=== PATIENT | male | born 1975 | race Caucasian/White ===

== ENCOUNTER 2017-02-08 01:49 | Emergency (ER) | payer BC ==
[~2017-02-08] VITALS: Ht 182.9 cm; Wt 127.0 kg
[2017-02-08] MEDS ORDERED: PHENERGAN 25 MG25 M1 PO (02:03)
[2017-02-08 03:34] VITALS: BP 130/90
== END 2017-02-08 03:35 | disposition home or self-care (01) ==
LOC: ER 01:49
DX: G43.909 Migraine, unspecified, not intractable, without status migrainosus (principal); F17.210 Nicotine dependence, cigarettes, uncomplicated; F10.99 Alcohol use, unspecified with unspecified alcohol-induced disorder

== ENCOUNTER 2017-02-23 02:05 | Emergency (ER) | payer BC ==
[~2017-02-23] VITALS: Ht 182.9 cm; Wt 127.0 kg
[~2017-02-23 02:05] MED LIST: PHENERGAN 25 MG25 M1 PO
[2017-02-23] MEDS ORDERED: COMPAZINE10 MG PO (04:17)
[2017-02-23 04:43] VITALS: BP 141/85
== END 2017-02-23 04:44 | disposition home or self-care (01) ==
LOC: ER 02:05
DX: G43.909 Migraine, unspecified, not intractable, without status migrainosus (principal); F17.210 Nicotine dependence, cigarettes, uncomplicated

== ENCOUNTER 2017-03-01 20:13 | Inpatient (IN) | payer BC ==
[~2017-03-01] VITALS: Ht 190.5 cm; Wt 134.7 kg
--- NOTE | ~2017-03-01 | EKG ---
[address] [address] ELECTROCARDIOGRAM REPORT Name: COCO RODRIGUEZ Room #: 437-P ADM IN M.R.#: [id number] Admission: 03/01/17 Attend Phys: Morro Mariscal MD Discharge: Date of : 71 Report #: [id number] THIS REPORT FOR: //name// [facility] ED Test Date: 2017-03-01 Test Time: 20:26:15 Pat Name: COCO RODRIGUEZ Department: Room: [facility] Gender: M Rehabilitation Team Lead: MZOOK : 1975 Requested By: Arian Castellon Order Number: [id number] MD: Manuel Singh Measurements Intervals [place] Rate: 100 P: 37 LA: 138 QRS: 23 QRSD: 94 T: 25 QT: 350 QTc: 452 Interpretive Statements Sinus tachycardia Baseline wander in lead(s) V2 No previous ECG available for comparison Electronically Signed On 03-02-2017 8:09:34 CDT by Manuel Singh [email or web address] <ELECTRONICALLY SIGNED> By: Manuel Singh MD, [facility] 03/02/17 0809 25 25 Manuel Singh MD, [facility] /EPI
--- NOTE | ~2017-03-01 | HC ---
[facility] [place] [address] CONSULTATION Name: COCO RODRIGUEZ Room #: 437-P ADM IN M.R.#: [id number] Admission: 03/01/17 Attend Phys: Morro Mariscal MD Discharge: Date of : 71 Report #: [id number] THIS REPORT FOR: //name// CC: Morro Steven REASON FOR CONSULTATION: Chest pain. HISTORY OF PRESENT ILLNESS: The patient is a 42-year-old male with history of tobacco abuse; prior bilateral DVTs, status post IVC filter, who presented with complaints of chest pain. He reports that the chest pain can come and go and typically occurs at rest, feels like he reports that the chest pain occurs between the ribs on the right side of his chest and then shoot to his left shoulder. This will last for several hours. It sometimes is associated with acceleration of his heart rate. He denies any PND or orthopnea. He denies any presyncope or syncope. REVIEW OF SYSTEMS: GENERAL: No fevers, chills. HEENT: No blurred vision. CARDIOVASCULAR: As above. PULMONARY: No productive cough. GASTROINTESTINAL: No nausea or vomiting. GENITOURINARY: He says he does have some problems with nausea and some diarrhea, but no vomiting. GENITOURINARY: No dysuria. MUSCULOSKELETAL: No myalgias or arthralgias. ENDOCRINE: No heat or cold intolerance. NEUROLOGIC: No focal weakness. PAST MEDICAL HISTORY: 1. 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 2. Migraines. 3. Continued tobacco abuse. SOCIAL HISTORY: Continues to smoke. 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 FAMILY HISTORY: Father of an SD in his 70s. ALLERGIES: None. MEDICATIONS: Coumadin, Remeron, loperamide, calcium, diphenhydramine. PHYSICAL EXAMINATION: VITAL SIGNS: Temperature is 36.8, pulse 86, respiration 20, blood pressure 125/89, sats 96%. [facility] [address] [place] [address] CONSULTATION Name: COCO RODRIGUEZ Room #: [address] [place] [address] IN M.R.#: [id number] Admission: 03/01/17 Attend Phys: Morro Mariscal MD Discharge: Date of : 71 Report #: [id number] GENERAL: He is in no acute distress. Alert and oriented x 3, sitting up at the bedside. HEENT: His oropharynx is clear. NECK: There are no carotid bruits and there is no lymphadenopathy. HEART: Regular rate and rhythm with normal S1 and S2. No S3, S4. LUNGS: Clear to auscultation bilaterally. ABDOMEN: Obese but nontender, nondistended with no hepatosplenomegaly. EXTREMITIES: There is no clubbing or cyanosis. There is 1+ edema bilaterally. His pulses are 2+ throughout. His cranial nerves 2-12 are intact. LABORATORY DATA: His EKG shows normal sinus rhythm with no ischemic changes. His chest x-ray showed no acute process. The patient underwent a nuclear stress test yesterday that showed no ischemia and normal ejection fraction. His white count is 9.6. His hemoglobin is 17, his platelets are 204. His coags demonstrate that his INR has been therapeutic at 3.3 and 3.5. His chemistries have been normal with the sodium 140, potassium 4.5, BUN 16, creatinine 1.1, magnesium 1.7, AST 37, ALT 67. Troponin is negative. IMPRESSION: In summary, the patient is a 42-year-old male with history of tobacco abuse, presenting with chest pain. His chest pain sounds to be atypical in nature. His EKG is negative. His troponin was negative and his nuclear stress test showed no evidence of ischemia. As such, I think that his chest pain is noncardiac in nature. I recommend that he optimize his risk factors including cessation of tobacco abuse. I recommend that he follow up with his primary care physician for management of his other medical issues and to follow up for routine preventative care measures. I thank you for allowing me to participate in his care. We will sign off. By: [id number] [id number] Vivek Otto MD /nt
--- NOTE | ~2017-03-01 | H ---
[facility] [place] [address] HISTORY AND PHYSICAL Name: COCO RODRIGUEZ Room #: 437-P [facility] IN M.R.#: [id number] Admission: 03/01/17 Attend Phys: Morro Mariscal MD Discharge: 03/04/17 Date of : 71 Report #: [id number] THIS REPORT FOR: //name// CC: Morro Steven DATE OF ADMISSION: 03/02/2017. ATTENDING PHYSICIAN: Dr. Morro Mariscal. PRIMARY CARE PHYSICIAN: TROY Dozier CHIEF COMPLAINT: Chest pain. HISTORY OF PRESENT ILLNESS: The patient is a 42-year-old male who came into the ER complaining of midsternal chest pain. This has been associated with fatigue, palpitations, cough and some left shoulder pain with indigestion. It has been occuring intermittently over the course of the last few days. All his symptoms usually occur around the same time. He became more concerned today because he checked his heart rate during one of these episodes and says that was around 150. He does feel like his heart raises and pounds in his chest very hard. He has not taken any medications for his pain at home. He does have a history of bilateral DVTs and is on Coumadin. He had an IVC filter in place as well because at the time of his diagnoses of the DVTs in August of 2016. They also found a kidney hematoma and eventually he was started on Coumadin. He denies any history of hypertension or coronary artery disease. He denies any recent exertional chest pain. He has been in the ER in the last few months for migraines and he has never had this type of pain before. He denies any prior cardiac testing. He denies any injury to his chest or shoulder. He has tried multiple Tums at home, which has not seemed to help. PAST MEDICAL HISTORY: Bilateral DVTs, kidney hematoma, migraines. PAST SURGICAL HISTORY: IVC filter placement and an arm and face surgery. ALLERGIES: No known drug allergies. HOME MEDICATIONS: Diphenhydramine 25 mg at bedtime p.r.n., Coumadin 7.5 mg alternating with 5 mg daily, Remeron 45 mg p.o. at bedtime, loperamide p.r.n. and calcium carbonate up to 10 tabs per day p.r.n. for digestion. SOCIAL HISTORY: The patient currently lives with his girlfriend/fiance. 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 Denies any alcohol or drug use. He is a smoker, smoking up to a pack of cigarettes per day, has been smoking for at least 32 years. [facility] [address] [place] [address] HISTORY AND PHYSICAL Name: COCO RODRIGUEZ Room #: 437-P [facility] IN M.R.#: [id number] Admission: 03/01/17 Attend Phys: Morro Mariscal MD Discharge: 03/04/17 Date of : 71 Report #: [id number] FAMILY HISTORY: His father from a heart attack in his 70s, his mother from some sort of cancer in her 50s. REVIEW OF SYSTEMS: A 12-point review of systems was reviewed with the patient, otherwise negative unless stated in the HPI. PHYSICAL EXAMINATION: GENERAL: The patient is an alert male in no acute distress. VITAL SIGNS: Temperature is 36.8, heart rate 109, respirations 17, blood pressure is 130/93, oxygen 97% on room air. HEENT: PERRLA. Sclerae is nonicteric. Oral mucosa is pink and moist. NECK: Supple, no JVD noted. CARDIOVASCULAR: Normal S1, S2. No murmurs, rubs or gallops. RESPIRATORY: Breath sounds are clear bilaterally. No wheezing or rhonchi. Breathing is nonlabored. ABDOMEN: Obese, soft, nontender, nondistended with positive bowel sounds. VASCULAR: 1+ bilateral lower extremity edema. Pedal pulses are 2+. NEUROLOGIC: The patient is alert and oriented x 3. Speech is clear. He is moving all extremities equally. No focal neuro deficits noted. LABORATORY DATA AND DIAGNOSTICS: WBC is 9.6, hemoglobin is 17.0, platelets 204. Sodium is 140, potassium 4.5, BUN 16, creatinine 1.1, glucose 108, magnesium 1.7. LFTs have been within normal limits. Troponins x 2 are negative and BNP 22, TSH is 1.8. EKG showing sinus tachycardia, rate of 100 and chest x-ray showed no acute process. Lungs are clear. ASSESSMENT AND PLAN: 1. Chest pain. His initial cardiac workup in the ER was negative. So far two sets of troponins are negative. He does have some cardiac risk factors. We will go ahead and check a stress test in the morning if his symptoms persist he may need to have further GI evaluation. This may be due to gastritis. Continue. We will add Pepcid b.i.d. 2. History of DVTs. The patient is on Coumadin. INR level is mildly supratherapeutic. We will check INRs daily and continue with Coumadin. He is supposed to be following up at [facility] to have his IVC filter removed soon. 3. Tobacco abuse. The patient has been advised to quit. 4. Hypomagnesium. This has been replaced. Repeat labs. 5. Deep venous thrombosis prophylaxis, place sequential compression devices. We will continue to follow the patient closely throughout the hospitalization and make changes based on clinical status. <ELECTRONICALLY SIGNED> By: TROY Leroy 03/05/17 0604 [id number] [id number] TROY Leroy /nt
[~2017-03-01 20:13] MED LIST changes: +COMPAZINE10 MG PO
[2017-03-01 20:32] VITALS: BP 131/93
[2017-03-01] MEDS ORDERED: COUMADIN7.5 MG PO (20:34)
[2017-03-01] MEDS ORDERED: BENADRYL25 MG PO (20:35)
[2017-03-01 21:34] LABS: ABSOLUTE NEUTROPHILS 4.9 thou/uL (1.4-8.2); BASOPHILS 0.8 % (0.0-2.0); EOSINOPHILS 2.2 % (0.0-3.0); HEMATOCRIT 49.8 % (42.0-52.0); MANUAL DIFF NO; MCH 29.1 pg (26.0-34.0); MCHC 34.1 g/dL (28.0-37.0); MCV 85.4 fL (80.0-100.0); MONOCYTES 9.9 % (1.0-8.0); PLATELET COUNT 204 thou/uL (150-400); POLYS 51.1 % (36.0-66.0); RBC 5.83 mil/uL (4.50-6.00); RDW 18.4 % (10.5-14.5); WBC 9.6 thou/uL (4.0-11.0)
[2017-03-01 21:45] LABS: ANION GAP 11 mmol/L (7-16); BUN 16 mg/dL (7-18); CHLORIDE 108 mmol/L (98-107); CO2 21 mmol/L (21-32); CREATININE 1.1 mg/dL (0.7-1.3); GLUCOSE 108 mg/dL (74-106); POTASSIUM 4.5 mmol/L (3.5-5.1); SODIUM 140 mmol/L (136-145)
[2017-03-01 21:47] LABS: INR 3.3; PROTIME 34.2 Seconds (9.3-11.4)
[2017-03-01 21:51] LABS: ALBUMIN 3.6 g/dL (3.4-5.0); ALKALINE PHOSPHATASE 72 U/L (46-116); MAGNESIUM 1.7 mg/dL (1.8-2.4); SGPT 67 U/L (30-65); TOTAL BILIRUBIN 0.5 mg/dL (<0.1-1.0); TOTAL PROTEIN 7.1 g/dL (6.4-8.2); TROPONIN-I < 0.04 ng/mL (<0.04-0.07)
[2017-03-01 22:03] LABS: SGOT 37 U/L (15-37)
[2017-03-01 22:30] VITALS: BP 123/85
[2017-03-02] MEDS ORDERED: REMERON15 MG PO (00:04)
[2017-03-02] MEDS ORDERED: COUMADIN 5 MG TA5 M1 PO (00:10)
[2017-03-02 00:45] VITALS: BP 124/82
[2017-03-02] MEDS ORDERED: TUMS PO (01:21)
[2017-03-02] MEDS ORDERED: LOPERAMIDE 2 MG2 M1 PO (01:24)
[2017-03-02 04:30] VITALS: BP 162/74
[2017-03-02 07:11] LABS: TC:HDL 8.3 Ratio (Not establshd)
[2017-03-02 08:00] VITALS: BP 149/85
[2017-03-02 16:00] VITALS: BP 150/103
[2017-03-02 18:12] VITALS: BP 136/75
[2017-03-02 19:40] VITALS: BP 130/91
[2017-03-03 03:40] VITALS: BP 148/73
[2017-03-03 05:58] LABS: INR 3.5; PROTIME 36.8 Seconds (9.3-11.4)
[2017-03-03 08:00] VITALS: BP 125/89
[2017-03-03 16:00] VITALS: BP 158/99
[2017-03-03 21:00] VITALS: BP 139/90
[2017-03-04 05:56] LABS: BASOPHILS 1.2 % (0.0-2.0); EOSINOPHILS 3.1 % (0.0-3.0); HEMATOCRIT 47.8 % (42.0-52.0); HEMOGLOBIN 16.2 gm/dL (14.0-18.0); LYMPHOCYTES 38.7 % (24.0-44.0); MCH 28.6 pg (26.0-34.0); MCHC 33.9 g/dL (28.0-37.0); MCV 84.2 fL (80.0-100.0); MONOCYTES 11.4 % (1.0-8.0); PLATELET COUNT 140 thou/uL (150-400); POLYS 45.6 % (36.0-66.0); RBC 5.67 mil/uL (4.50-6.00); RDW 17.9 % (10.5-14.5); WBC 6.5 thou/uL (4.0-11.0)
[2017-03-04 06:06] LABS: MANUAL DIFF NO
[2017-03-04 06:07] LABS: CALCIUM 7.8 mg/dL (8.5-10.1); INR 3.4; POTASSIUM 4.4 mmol/L (3.5-5.1); PROTIME 34.8 Seconds (9.3-11.4)
[2017-03-04 06:34] VITALS: BP 129/90
[2017-03-04 07:59] VITALS: BP 129/90
[2017-03-04 09:01] VITALS: BP 135/99
== END 2017-03-04 09:44 | disposition home or self-care (01) | DRG 313 ==
LOC: ER 20:13 → EROBS 23:07 → 4S 23:07
PROVIDERS: Emergency Medicine; Internal Medicine Geriatric Medicine; Nurse Practitioner Acute Care
DX: R07.89 Other chest pain (principal); F17.210 Nicotine dependence, cigarettes, uncomplicated; E83.42 Hypomagnesemia; G43.909 Migraine, unspecified, not intractable, without status migrainosus; Z86.718 Personal history of other venous thrombosis and embolism; Z79.01 Long term (current) use of anticoagulants; Z79.899 Other long term (current) drug therapy; Z86.711 Personal history of pulmonary embolism; Z82.49 Family history of ischemic heart disease and other diseases of the circulatory system; Z80.9 Family history of malignant neoplasm, unspecified; Z71.6 Tobacco abuse counseling
CPT/HCPCS: 10100

== ENCOUNTER 2017-11-17 15:51 | Emergency (ER) | payer OTHER ==
[~2017-11-17] VITALS: Ht 193 cm; Wt 117.9 kg
[~2017-11-17 15:51] MED LIST changes: +AUGMENTIN 500-1 EACH PO; +BENADRYL25 MG PO; +COUMADIN 5 MG TA5 M1 PO; +COUMADIN7.5 MG PO; +ELIQUIS5 MG PO; +FLOMAX0.4 MG PO; +HYDROCORTISONE30 G9 TOP; +KEFLEX500 M1 PO; +LOPERAMIDE 2 MG2 M1 PO; +OXYCODONE HCL 55 MG PO; +OXYCODONE-APAP1 EAC6 PO; +REMERON15 MG PO; +TUMS PO
[2017-11-17] MEDS ORDERED: REMERON15 MG PO (16:58)
[2017-11-17] MEDS ORDERED: ONDANSETRON HCL4 M2 PO (16:59)
[2017-11-17] MEDS ORDERED: COMPAZINE10 M2 PO (18:11)
[2017-11-17 18:42] VITALS: BP 131/94
== END 2017-11-17 18:46 | disposition home or self-care (01) ==
LOC: ER 15:51
DX: R51 Headache (principal); F17.210 Nicotine dependence, cigarettes, uncomplicated; Z90.89 Acquired absence of other organs; Z86.718 Personal history of other venous thrombosis and embolism

== ENCOUNTER 2018-01-07 11:27 | Emergency (ER) | payer OTHER ==
[~2018-01-07] VITALS: Ht 190.5 cm; Wt 123.8 kg
[~2018-01-07 11:27] MED LIST changes: +COMPAZINE10 M2 PO; +ONDANSETRON HCL4 M2 PO
[2018-01-07] MEDS ORDERED: NORCO 5-325 TA1 EACH PO (12:00)
[2018-01-07] MEDS ORDERED: PREDNISONE 20 M20 MG PO (12:00)
[2018-01-07 13:24] VITALS: BP 123/94
== END 2018-01-07 13:25 | disposition home or self-care (01) ==
LOC: ER 11:27
DX: M10.9 Gout, unspecified (principal); M79.672 Pain in left foot; F17.210 Nicotine dependence, cigarettes, uncomplicated

== ENCOUNTER 2018-08-31 14:42 | Emergency (ER) | payer OTHER ==
[~2018-08-31] VITALS: Ht 193 cm; Wt 117.9 kg
[~2018-08-31 14:42] MED LIST changes: +NORCO 5-325 TA1 EACH PO; +PREDNISONE 20 M20 MG PO
[2018-08-31] MEDS ORDERED: NOHOMEMEDICATIONS (15:06)
[2018-08-31 15:31] LABS: ABSOLUTE NEUTROPHILS 4.4 thou/uL (1.4-8.2); BASOPHILS 1.4 % (0.0-2.0); EOSINOPHILS 2.1 % (0.0-3.0); HEMATOCRIT 50.8 % (42.0-52.0); HEMOGLOBIN 17.4 gm/dL (14.0-18.0); LYMPHOCYTES 27.9 % (24.0-44.0); MCH 30.5 pg (26.0-34.0); MCHC 34.2 g/dL (28.0-37.0); MCV 89.1 fL (80.0-100.0); MONOCYTES 10.8 % (1.0-8.0); PLATELET COUNT 186 thou/uL (150-400); POLYS 57.8 % (36.0-66.0); RDW 13.5 % (10.5-14.5); WBC 7.6 thou/uL (4.0-11.0)
[2018-08-31 15:47] LABS: CALCIUM 8.6 mg/dL (8.5-10.1); CREATININE 1.2 mg/dL (0.7-1.3); POTASSIUM 4.1 mmol/L (3.5-5.1)
[2018-08-31 15:50] LABS: URIC ACID* 5.4 mg/dL (2.6-7.2)
[2018-08-31] MEDS ORDERED: ELIQUIS5 MG PO (16:52)
[2018-08-31] MEDS ORDERED: CLONAZEPAM 0.50.5 M1 PO (16:52)
[2018-08-31 17:04] VITALS: BP 138/88
[2018-08-31] MEDS ORDERED: TRAMADOL 50 MG50 MG PO (17:04)
[2018-08-31] MEDS ORDERED: KEFLEX500 M1 PO (17:21)
== END 2018-08-31 17:31 | disposition home or self-care (01) ==
LOC: ER 14:42
PROVIDERS: Nurse Practitioner Family
DX: I82.492 Acute embolism and thrombosis of other specified deep vein of left lower extremity (principal); F41.9 Anxiety disorder, unspecified; M10.9 Gout, unspecified; F17.210 Nicotine dependence, cigarettes, uncomplicated

== ENCOUNTER 2018-09-06 16:20 | Emergency (ER) | payer OTHER ==
[~2018-09-06] VITALS: Ht 193 cm; Wt 117.9 kg
[~2018-09-06 16:20] MED LIST changes: +CLONAZEPAM 0.50.5 M1 PO; +NOHOMEMEDICATIONS; +TRAMADOL 50 MG50 MG PO
[2018-09-06] MEDS ORDERED: CLONAZEPAM 0.50.5 M1 PO (18:08)
[2018-09-06] MEDS ORDERED: ULTRAM50 MG PO (18:08)
[2018-09-06 18:16] VITALS: BP 133/88
== END 2018-09-06 18:17 | disposition home or self-care (01) ==
LOC: ER 16:20
DX: L89.899 Pressure ulcer of other site, unspecified stage (principal); F17.210 Nicotine dependence, cigarettes, uncomplicated

== ENCOUNTER 2020-05-18 20:34 | Emergency (ER) | payer OTHER ==
[~2020-05-18] VITALS: Ht 193 cm; Wt 127.0 kg
[~2020-05-18 20:34] MED LIST changes: +ULTRAM50 MG PO
[2020-05-18 21:09] LABS: URINE BILIRUBIN NEGATIVE (Negative); URINE BLOOD NEGATIVE (Negative); URINE CLARITY CLEAR; URINE COLOR YELLOW; URINE GLUCOSE-RANDOM* NEGATIVE (Negative); URINE KETONES NEGATIVE (Negative); URINE LEUKOCYTES-REFLEX NEGATIVE (Negative); URINE NITRITE-REFLEX NEGATIVE (Negative); URINE PROTEIN (DIPSTICK) NEGATIVE (Negative); URINE SPECIFIC GRAVITY <= 1.005 (1.005-1.035); URINE UROBILINOGEN 0.2 E.U./dl (0.2-1.0)
[2020-05-18 21:10] LABS: ABSOLUTE NEUTROPHILS 3.6 thou/uL (1.4-8.2); BASOPHILS 0.3 % (0.0-2.0); EOSINOPHILS 1.5 % (0.0-3.0); HEMOGLOBIN 17.6 gm/dL (14.0-18.0); LYMPHOCYTES 36.2 % (24.0-44.0); MCH 30.4 pg (26.0-34.0); MCHC 33.9 g/dL (28.0-37.0); MCV 89.9 fL (80.0-100.0); MONOCYTES 8.1 % (1.0-8.0); PLATELET COUNT 175 thou/uL (150-400); POLYS 53.9 % (36.0-66.0); RBC 5.79 mil/uL (4.50-6.00); WBC 6.6 thou/uL (4.0-11.0)
[2020-05-18 21:20] LABS: CALCIUM 8.5 mg/dL (8.5-10.1); CREATININE 1.3 mg/dL (0.7-1.3); POTASSIUM 3.9 mmol/L (3.5-5.1)
[2020-05-18 21:26] LABS: ALBUMIN 3.7 g/dL (3.4-5.0); TOTAL BILIRUBIN 0.3 mg/dL (0.2-1.0); TOTAL PROTEIN 7.4 g/dL (6.4-8.2)
[2020-05-18 21:46] VITALS: BP 144/91
[2020-05-19] MEDS ORDERED: PERCOCET 5-3251 EACH PO (00:15)
[2020-05-19] MEDS ORDERED: FLEXERIL PO (18:44)
[2020-05-19] MEDS ORDERED: PERCOCET 10-321 EACH PO (18:44)
== END 2020-05-19 00:47 | disposition home or self-care (01) ==
LOC: ER 20:34
PROVIDERS: Emergency Medicine
DX: N50.811 Right testicular pain (principal); F17.210 Nicotine dependence, cigarettes, uncomplicated; Z79.899 Other long term (current) drug therapy

== ENCOUNTER 2020-05-19 16:47 | Emergency (ER) | payer OTHER ==
[~2020-05-19] VITALS: Ht 193 cm; Wt 127.0 kg
--- NOTE | ~2020-05-19 | EMS ---
[address] [address] EMS Patient Care Report Name: COCO RODRIGUEZ Room #: DEP JACOBO Neely#: [id number] Admission: 05/19/20 Attend Phys: Discharge: 05/19/20 Date of : 71 Report #: [id number] THIS REPORT FOR: //name// Report Transmitted: 05/20/2020 08:13 EMS Care Summary [facility] Incident [id number] @ 05/19/2020 16:03 Incident Location [address] [place] [address] Patient COCO RODRIGUEZ Male, 45 Years 1975 Patient Address [address] [place] [address] Patient History Other, Patient Allergies No known allergies, Patient Medications Coumadin, Percocet, Chief Complaint right flank pain Disposition Transported No Lights/[place] Dispatch Reason Back Pain (Non-Traumatic) Transported To [facility] Narrative Upon EMS arrival pt was standing outside in the parking lot of his apartment. Pt was alert and oriented. Pt states that he is having right sided flank pain [address] [address] EMS Patient Care Report Name: COCO RODRIGUEZ Room #: DEP Shiv.#: [id number] Admission: 05/19/20 Attend Phys: Discharge: 05/19/20 Date of : 71 Report #: [id number] that radiates to his groin. Pt states that he was seen at the ED for this today with nothing found. Pt states that he was prescribed percocet but that isnt helping the pain so he called 911. Pt states that the pain feels like a stabbing and twisting. Pt states that it feels like "someone is cutting and digging". Pt rates the pain a 10 on a 1-10 scale. Pt states that he can step inside the ambulance and lay on the cot. Pt was secured by all straps. IV established and 100 mcg of fentanyl administered. Pt is still yelling in pain and rates his pain a 10. Pt transported to [place] at his request. Pts vitals stable but pt still yelling in pain. a second dose of fentanyl was administered and pt states that his pain is still a 10 on a 1-10 scale. Pt was taken to room 11 and was able to stand and sit on the ED bed. Report given to RN. Initial Vitals @16:33P: 98,R: 16,BP: 137/92,Pain: 10/10,GCS: 15,SpO2: 94,Revised Trauma: 12, @16:19P: 105,R: 16,BP: 142/110,Pain: 10/10,GCS: 15,Temp: 96.7F,SpO2: 92,Revised Trauma: 12, Assessments @16:17MENTAL:Person Oriented,Time Oriented,Place Oriented,Event Oriented,SKIN:HEENT:Head/Face: No Abnormalities,Neck/Airway: No Abnormalities,LUNG SOUNDS:ABDOMEN:PELVIS//GI:EXTREMITIES:Left Arm: No Abnormalities,Right Arm: No Abnormalities,PULSE:NEURO:No Abnormalities, Impression Pain (Non-Traumatic) Procedures @16:20Saline Lock 10cc (20 ga) Site: Hand-RightResponse: UnchangedSucceeded@16:21Fentanyl - 100 Micrograms (mcg) - Intravenous (IV)Response: Unchanged@16:35Fentanyl - 100 Micrograms (mcg) - Intravenous (IV)Response: Unchanged Timeline 16:02,Call Received 16:02,Psap Call 16:03,Dispatched 16:05,En Route 16:14,On Scene 16:14,At Patient 16:19,BP: 142/110 M,PULSE: 105,RR: 16 R,SPO2: 92 Ox,ETCO2: ,BG: ,PAIN: 10,GCS: 15, 16:20,Saline Lock 10cc 20 ga Site: Hand-Right,Response: UnchangedSucceeded, 16:21,Fentanyl - 100 Micrograms (mcg) - Intravenous (IV),Response: Unchanged 16:22,Depart Scene 16:33,BP: 137/92 M,PULSE: 98,RR: 16 R,SPO2: 94 Ox,ETCO2: ,BG: ,PAIN: 10,GCS: 15, [address] [address] EMS Patient Care Report Name: COCO RODRIGUEZ Room #: DEP JACOBO Neely#: [id number] Admission: 05/19/20 Attend Phys: Discharge: 05/19/20 Date of : 71 Report #: [id number] 16:35,Fentanyl - 100 Micrograms (mcg) - Intravenous (IV),Response: Unchanged 16:38,At Destination 17:00,Call Closed Disclaimer [email or web address] Copyright 2020 Infor This EMS Care Summary contains data elements from the applicable legal record (which may be displayed differently). It is designed to provide pertinent information for the following purposes: continuity of care, clinical quality, and state data reporting. The complete legal record is available to ED staff and administrators of the receiving hospital in [employer]'s Patient Tracker. All data is provided "as is."
[~2020-05-19 16:47] MED LIST changes: +PERCOCET 5-3251 EACH PO
[2020-05-19 18:06] LABS: ABSOLUTE NEUTROPHILS 3.5 thou/uL (1.4-8.2); BASOPHILS 1.4 % (0.0-2.0); EOSINOPHILS 2.1 % (0.0-3.0); HEMATOCRIT 52.9 % (42.0-52.0); HEMOGLOBIN 17.8 gm/dL (14.0-18.0); LYMPHOCYTES 30.5 % (24.0-44.0); MCH 30.4 pg (26.0-34.0); MCHC 33.7 g/dL (28.0-37.0); MCV 90.2 fL (80.0-100.0); MONOCYTES 11.2 % (1.0-8.0); PLATELET COUNT 173 thou/uL (150-400); POLYS 54.8 % (36.0-66.0); RBC 5.86 mil/uL (4.50-6.00); RDW 13.7 % (10.5-14.5); WBC 6.3 thou/uL (4.0-11.0)
[2020-05-19 18:14] LABS: ANION GAP 10 mmol/L (7-16); BUN 16 mg/dL (7-18); CALCIUM 8.4 mg/dL (8.5-10.1); CHLORIDE 102 mmol/L (98-107); CO2 23 mmol/L (21-32); CREATININE 1.4 mg/dL (0.7-1.3); GLUCOSE 97 mg/dL (74-106); POTASSIUM 4.5 mmol/L (3.5-5.1); SODIUM 135 mmol/L (136-145)
[2020-05-19 18:20] LABS: ALBUMIN 3.7 g/dL (3.4-5.0); DIRECT BILIRUBIN < 0.1 mg/dL (<0.1-0.2); SGOT 27 U/L (15-37); SGPT 37 U/L (30-65); TOTAL BILIRUBIN 0.4 mg/dL (0.2-1.0); TOTAL PROTEIN 7.2 g/dL (6.4-8.2)
[2020-05-19 18:40] VITALS: BP 140/70
[2020-05-19] MEDS ORDERED: FLEXERIL PO (18:44)
[2020-05-19] MEDS ORDERED: PERCOCET 10-321 EACH PO (18:44)
== END 2020-05-19 18:40 | disposition home or self-care (01) ==
LOC: ER 16:47
PROVIDERS: Emergency Medicine
DX: M54.5 Low back pain (principal); K59.00 Constipation, unspecified; F17.210 Nicotine dependence, cigarettes, uncomplicated; Z79.899 Other long term (current) drug therapy